=== PATIENT | male | born 1945 | race Caucasian/White ===

== ENCOUNTER 2020-03-13 11:17 | Emergency (ER) | payer MEDICARE ==
[~2020-03-13] VITALS: Ht 170.2 cm; Wt 81.8 kg
[2020-03-13 13:08] LABS: BASOPHILS % (AUTO) 0.4 % (0.0-2.0); EOSINOPHILS % (AUTO) 5.7 % (1.0-6.0); HEMATOCRIT 44.3 % (41-53); HEMOGLOBIN 14.7 g/dL (13.5-17.5); LYMPHOCYTES # (AUTO) 1.4 K/uL (1.0-4.8); LYMPHOCYTES % (AUTO) 22.7 % (22.0-44.0); MEAN CORPUSCULAR HEMOGLOBIN 30.7 pg (26.0-34.0); MEAN CORPUSCULAR HGB CONC 33.2 G/dL (31.0-37.0); MEAN CORPUSCULAR VOLUME 93 fL (80-100); MONOCYTES # (AUTO) 0.6 K/uL (0.1-1.0); MONOCYTES % (AUTO) 9.4 % (2.0-9.0); NEUTROPHILS # (AUTO) 3.7 K/uL (1.8-7.7); NEUTROPHILS % (AUTO) 61.8 % (40.0-70.0); PLATELET COUNT (AUTO) 214 K/uL (150-450); RED BLOOD CELL COUNT(AUTO) 4.79 MIL/uL (4.50-5.90); RED CELL DISTRIBUTION WIDTH 13.6 % (11.5-14.5)
[2020-03-13 13:23] LABS: ANION GAP 7 mmol/L (8-16); CALCIUM, TOTAL 9.1 mg/dL (8.8-10.5); CARBON DIOXIDE 32 mmol/L (22-29); CHLORIDE 100 mmol/L (98-107); CREATININE 0.87 mg/dL (0.60-1.30); GLOMERULAR FILTR. RATE CALC > 60 mL/min (>60); GLUCOSE,RANDOM 113 mg/dL (70-110); POTASSIUM 4.6 mmol/L (3.5-5.1); SODIUM SERUM 139 mmol/L (136-145); UREA NITROGEN, BLOOD 19 mg/dL (7-18)
[2020-03-13 13:30] LABS: ALANINE AMINOTRANSFERASE 37 U/L (12-78); ALBUMIN 3.8 g/dL (3.4-5.0); ALKALINE PHOSPHATASE 109 U/L (46-116); ASPARTATE AMINOTRANSFERASE 36 U/L (15-37); BILIRUBIN,TOTAL 0.4 mg/dL (0.1-1.0); TOTAL PROTEIN, SERUM 8.1 g/dL (6.4-8.2)
[2020-03-13 13:41] LABS: B-TYPE NATRIURETIC PEPTIDE < 5 pg/mL (0-100)
[2020-03-13] MEDS ORDERED: CLINDAMYCIN PHOS 150 MG/ML 4 ML VIAL IM ONE (15:00)
[2020-03-13] MEDS ORDERED: CLINDAMYCIN 600 MG/D5% WATER 50 ML IV ONE (15:00)
[2020-03-13 15:25] VITALS: BP 128/80
== END 2020-03-13 16:00 | disposition home or self-care (01) ==
LOC: EMS 11:26
DX: L03.115 Cellulitis of right lower limb (principal); E11.9 Type 2 diabetes mellitus without complications; E78.00 Pure hypercholesterolemia, unspecified; I10 Essential (primary) hypertension; Z88.6 Allergy status to analgesic agent; Z88.5 Allergy status to narcotic agent
CPT/HCPCS: 36415; 80053; 83880; 85025; 93926; 93971; 96365; 99284; J3490

== ENCOUNTER 2020-03-21 09:03 | Emergency (ER) | payer MEDICARE ==
[~2020-03-21] VITALS: Ht 170.2 cm; Wt 81.8 kg
[2020-03-21 09:04] VITALS: BP 141/82
== END 2020-03-21 10:20 | disposition home or self-care (01) ==
LOC: EMS 09:09
DX: L40.9 Psoriasis, unspecified (principal); E11.9 Type 2 diabetes mellitus without complications; E78.00 Pure hypercholesterolemia, unspecified; I10 Essential (primary) hypertension; Z88.6 Allergy status to analgesic agent; Z88.5 Allergy status to narcotic agent

== ENCOUNTER 2021-04-06 08:19 | Emergency (ER) | payer MEDICARE ==
[~2021-04-06] VITALS: Ht 170.2 cm; Wt 82.0 kg
[2021-04-06] MEDS ORDERED: ATOR20TA86 PO (08:29)
[2021-04-06] MEDS ORDERED: METF-960 PO (08:29)
[2021-04-06] MEDS ORDERED: HYDR-4072 PO (08:29)
[2021-04-06] MEDS ORDERED: LISI-657 PO (08:29)
[2021-04-06 10:38] VITALS: BP 167/99
== END 2021-04-06 11:03 | disposition home or self-care (01) ==
LOC: EMS 08:43
DX: M25.551 Pain in right hip (principal); R05 Cough; I10 Essential (primary) hypertension; E11.9 Type 2 diabetes mellitus without complications; E78.00 Pure hypercholesterolemia, unspecified; Z88.5 Allergy status to narcotic agent; Z88.6 Allergy status to analgesic agent; Z79.899 Other long term (current) drug therapy
CPT/HCPCS: 71045; 73502; 82962; 99284

== ENCOUNTER 2021-07-18 07:27 | Emergency (ER) | payer MEDICARE ==
[~2021-07-18] VITALS: Ht 160 cm; Wt 81.8 kg
[~2021-07-18 07:27] MED LIST: ATOR20TA86 PO; HYDR-4072 PO; LISI-657 PO; METF-960 PO
[2021-07-18] MEDS ORDERED: FURO-152 PO (07:58)
[2021-07-18] MEDS ORDERED: DICL25TA9 PO (07:58)
[2021-07-18] MEDS ORDERED: CEPH125S23 PO (07:58)
[2021-07-18] MEDS ORDERED: PREG20SO PO (07:58)
[2021-07-18 09:40] LABS: BASOPHILS % (AUTO) 0.4 % (0.0-2.0); CALCIUM, TOTAL 8.4 mg/dL (8.8-10.5); CREATININE 2.49 mg/dL (0.60-1.30); EOSINOPHILS % (AUTO) 0.8 % (1.0-6.0); HEMATOCRIT 25.3 % (41-53); HEMOGLOBIN 8.2 g/dL (13.5-17.5); LYMPHOCYTES # (AUTO) 0.9 K/uL (1.0-4.8); LYMPHOCYTES % (AUTO) 16.6 % (22.0-44.0); MEAN CORPUSCULAR HEMOGLOBIN 27.8 pg (26.0-34.0); MEAN CORPUSCULAR HGB CONC 32.2 G/dL (31.0-37.0); MEAN CORPUSCULAR VOLUME 86 fL (80-100); MONOCYTES # (AUTO) 0.3 K/uL (0.1-1.0); MONOCYTES % (AUTO) 6.1 % (2.0-9.0); NEUTROPHILS # (AUTO) 3.9 K/uL (1.8-7.7); NEUTROPHILS % (AUTO) 76.1 % (40.0-70.0); PLATELET COUNT (AUTO) 134 K/uL (150-450); POTASSIUM 5.4 mmol/L (3.5-5.1); RED BLOOD CELL COUNT(AUTO) 2.94 MIL/uL (4.50-5.90); RED CELL DISTRIBUTION WIDTH 16.9 % (11.5-14.5)
[2021-07-18] MEDS ORDERED: SODIUM CHLORIDE 0.9% 500 ML IV ONE (09:45)
[2021-07-18 09:47] LABS: INR 1.1 (0.9-1.1); PROTHROMBIN TIME 11.3 SEC (9.4-11.6)
[2021-07-18 10:05] LABS: ALBUMIN 2.4 g/dL (3.4-5.0); BILIRUBIN,TOTAL 0.4 mg/dL (0.1-1.0); TOTAL PROTEIN, SERUM 7.3 g/dL (6.4-8.2)
[2021-07-18] MEDS ORDERED: HEPARIN SODIUM 25000 UNITS/D5W 250 ML IV PRN (10:15)
[2021-07-18] MEDS ORDERED: ASPIRIN 325 MG TABLET PO ONE (10:15)
[2021-07-18 10:31] LABS: COVID AG,FIA SOURCE NASOPHARYNGEAL
[2021-07-18] MEDS ORDERED: 0.9% SODIUM CHLORIDE 10 ML SYRINGE IVP PRN (11:15)
[2021-07-18] MEDS ORDERED: ONDANSETRON HCL 4 MG/2 ML VIAL IVP PRN (11:15)
[2021-07-18] MEDS ORDERED: PENTETATE DTPA TC99M/MCL ISOTOPE 1 EA INJ INJ ONE (13:35)
[2021-07-18] MEDS ORDERED: MAA ALBUMIN AGGREGATED TC99M/UD<10MCL ISOTOPE 1 EA INJ INJ ONE (13:55)
[2021-07-18] MEDS ORDERED: PHENYLEPHRINE HCL IN 0.9% NACL 400 MCG/10 ML SYRINGE IVP ONE (14:24)
[2021-07-18 15:24] VITALS: BP 79/49
== END 2021-07-18 16:36 | disposition short-term general hospital (02) ==
LOC: EMS 07:46
DX: U07.1 COVID-19 (principal); I21.4 Non-ST elevation (NSTEMI) myocardial infarction; E11.9 Type 2 diabetes mellitus without complications; E78.00 Pure hypercholesterolemia, unspecified; I10 Essential (primary) hypertension; Z88.5 Allergy status to narcotic agent; Z88.6 Allergy status to analgesic agent; Z79.84 Long term (current) use of oral hypoglycemic drugs; Z79.899 Other long term (current) drug therapy
CPT/HCPCS: 36415; 71045; 78582; 80053; 82550; 83880; 84484; 85025; 85610; 85730; 87426; 93005; 93306; 93970; 96361; 96365; 96366; 96368; 99291; A9539; A9540; J1250; J1644; J7040; Q9967; 96367; 99285